=== PATIENT | female | born 1980 | race Caucasian/White ===

== ENCOUNTER 2021-11-01 22:33 | Emergency (ER) | payer SELFPAY ==
[2021-11-01] MEDS ORDERED: Ondansetron ODT 4 MG TAB ONE (23:21)
[2021-11-01] MEDS ORDERED: Acetaminophen 500 MG TAB ONE (23:21)
[2021-11-02 00:28] LABS: SARS-CoV-2 NAA Rapid Test DETECTED (NotDetected)
== END 2021-11-02 00:50 | disposition home or self-care (01) ==
LOC: CSHERS 22:33
DX: U07.1 COVID-19 (principal); J45.909 Unspecified asthma, uncomplicated
CPT/HCPCS: 0240U; 99283; Q0162